=== PATIENT | female | born 1975 | race Caucasian/White ===

== ENCOUNTER 2017-12-23 10:09 | Emergency (ER) | payer SELFPAY ==
[~2017-12-23] VITALS: Ht 162.6 cm; Wt 44.8 kg
[2017-12-23 10:49] LABS: BASOPHIL (%) 0.3 % (0-1); EOSINOPHIL COUNT 0.1 K/uL (0-0.3); HEMOGLOBIN 13.3 G/DL (11.9-15.5); IMMATURE GRANULOCYTE (%) 0.2 % (0.0-0.7); LYMPHOCYTE (%) 33.5 % (15-42); LYMPHOCYTE COUNT 1.9 K/uL (1.0-2.8); MCH 28.2 PG (29.0-34.0); MCHC 34.1 G/DL (30.0-36.0); MCV 82.6 FL (83-99); MONOCYTE (%) 7.2 % (3-12); MONOCYTE COUNT 0.4 K/uL (0-0.8); NEUTROPHIL (%) 57.8 % (45-76); NEUTROPHIL COUNT 3.3 K/uL (1.8-6.4); PLATELET COUNT 136 K/uL (156-360); RBC DIS.WIDTH-SD 36.5 % (39-53); RED BLOOD COUNT 4.72 M/uL (3.80-5.20); WHITE BLOOD COUNT 5.7 K/uL (4.1-10.2)
[2017-12-23 10:56] LABS: CHLORIDE 105 mEq/L (99-109); POTASSIUM 4.2 mEq/L (3.7-5.4); SODIUM 140 mEq/L (136-147)
[2017-12-23 10:58] LABS: GLUCOSE 135 mg/dL (70-99)
[2017-12-23 11:02] LABS: CREATININE 0.7 mg/dL (0.6-1.3); GFR ESTIMATE (CALCULATED) > 59 mL/min/
[2017-12-23 11:03] LABS: UREA NITROGEN (BUN) 15 mg/dL (9-23)
[2017-12-23 12:10] LABS: THYROTROPIN (TSH) < 0.02 MIU/L (0.4-5.5)
[2017-12-23] MEDS ORDERED: MOTRIN800 MG PO (12:44)
[2017-12-23 13:35] VITALS: BP 132/78
== END 2017-12-23 13:39 | disposition home or self-care (01) ==
LOC: EME 10:09
PROVIDERS: Emergency Medicine
DX: R07.89 Other chest pain (principal); F17.200 Nicotine dependence, unspecified, uncomplicated
CPT/HCPCS: 71045; 80048; 84443; 85025; 85379; 93005; 99281; 99285; J7030

== ENCOUNTER 2018-01-28 12:52 | Emergency (ER) | payer OTHER ==
[~2018-01-28] VITALS: Ht 162.6 cm; Wt 43.6 kg
[~2018-01-28 12:52] MED LIST: MOTRIN800 MG PO
[2018-01-28 15:27] LABS: HEMOGLOBIN 14.6 G/DL (11.9-15.5); MCH 28.5 PG (29.0-34.0); MCHC 34.8 G/DL (30.0-36.0); MCV 81.9 FL (83-99); PLATELET COUNT 131 K/uL (156-360); RBC DIS.WIDTH-CV 11.9 % (11.8-14.6); RBC DIS.WIDTH-SD 35.7 % (39-53); RED BLOOD COUNT 5.13 M/uL (3.80-5.20); WHITE BLOOD COUNT 5.5 K/uL (4.1-10.2)
[2018-01-28 15:38] LABS: CHLORIDE 105 mEq/L (99-109); POTASSIUM 4.2 mEq/L (3.7-5.4); SODIUM 139 mEq/L (136-147)
[2018-01-28 15:40] LABS: GLUCOSE 98 mg/dL (70-99)
[2018-01-28 15:44] LABS: CREATININE 0.6 mg/dL (0.6-1.3); GFR ESTIMATE (CALCULATED) > 59 mL/min/
[2018-01-28 15:45] LABS: UREA NITROGEN (BUN) 12 mg/dL (9-23)
[2018-01-28] MEDS ORDERED: VALIUM5 MG PO (15:51)
[2018-01-28] MEDS ORDERED: REGLAN10 MG PO (15:51)
[2018-01-28] MEDS ORDERED: MEDROL DOSEPAK4 MG PO (15:51)
[2018-01-28 16:04] VITALS: BP 152/78
== END 2018-01-28 16:17 | disposition home or self-care (01) ==
LOC: EXP 12:52 → EME 12:52 → EXP 16:17
DX: R42 Dizziness and giddiness (principal); F17.200 Nicotine dependence, unspecified, uncomplicated
CPT/HCPCS: 70450; 71046; 80048; 85027; 93005; 99281; 99284

== ENCOUNTER → 2018-03-21 | Outpatient (CLI) | payer OTHER ==
[~2018-03-21] MED LIST changes: +MEDROL DOSEPAK4 MG PO; +REGLAN10 MG PO; +VALIUM5 MG PO
== END | disposition home or self-care (01) ==
LOC: RAD 13:19
DX: E05.00 Thyrotoxicosis with diffuse goiter without thyrotoxic crisis or storm (principal); R00.2 Palpitations; R51 Headache
CPT/HCPCS: 76536